=== PATIENT | female | born 1995 | race Hispanic/Latino ===

== ENCOUNTER 2022-10-11 09:42 | Emergency (ER) | payer MEDICAID ==
[~2022-10-11] VITALS: Ht 152.4 cm; Wt 61.2 kg
[2022-10-11 09:49] VITALS: BP 126/75
[2022-10-11 10:07] LABS: BASOPHILS % (AUTO) 0.4 % (0.0-5.0); EOSINOPHILS % (AUTO) 0.1 % (0.0-8.0); HEMATOCRIT 38.7 % (36-48); MEAN CORPUSCULAR HEMOGLOBIN 29.9 pg (27.0-33.0); MEAN CORPUSCULAR HGB CONC 34.1 g/dL (32.0-36.0); MEAN CORPUSCULAR VOLUME 87.8 fL (79-99); MONOCYTES % (AUTO) 8.4 % (3.0-13.0); NEUTROPHILS % (AUTO) 79.6 % (40.0-77.0); PLATELET COUNT (AUTO) 231 K/uL (130-400); RED BLOOD CELL COUNT(AUTO) 4.41 MIL/uL (4.00-5.50); WHITE BLOOD COUNT (AUTO) 15.2 K/uL (4.8-10.8)
[2022-10-11 10:10] LABS: APPEARANCE,URINE CLEAR (CLEAR); BILIRUBIN,URINE NEGATIVE (NEGATIVE); COLOR,URINE COLORLESS (YELLOW); GLUCOSE, URINE (UA) NEGATIVE (NEGATIVE); KETONES,URINE 20 mg/dL (NEGATIVE); LEUKOCYTE ESTERASE ,URINE NEGATIVE Leu/uL (NEGATIVE); NITRATE,URINE NEGATIVE (NEGATIVE); OCCULT BLOOD,URINE NEGATIVE (NEGATIVE); PROTEIN,URINE NEGATIVE (NEGATIVE); UROBILINOGEN,URINE 0.2 mg/dL (0.2-1.0)
[2022-10-11 10:14] LABS: MUCUS,URINE RARE LPF (None Seen); RBC,URINE 0-1 /HPF (0-1); SQUAMOUS EPITHELIAL CELL,UR FEW /HPF (0-2)
[2022-10-11 10:27] LABS: CREATININE 0.8 mg/dL (0.5-1.5); POTASSIUM 3.6 mmol/L (3.5-5.1)
[2022-10-11 10:54] LABS: ALBUMIN 3.9 g/dL (3.5-5.0); TOTAL PROTEIN, SERUM 7.7 g/dL (6.0-8.3)
[2022-10-11] MEDS: 0.9%NACL 1000ML 1,000 ML IV ONE (12:50)
[2022-10-11] MEDS: FAMOTIDINE 20MG VIAL IV ONE (12:50)
[2022-10-11] MEDS: ONDANSETRON 4MG INJ IVP ONE (12:50)
[2022-10-11] MEDS: LIDOCAINE HCL 2% VISCOUS 15 ML UDCUP PO ONE (12:50)
[2022-10-11] MEDS: MAG/ALUM/SIMETH 30 ML UDCUP PO ONE (12:50)
[2022-10-11] MEDS: ACETAMINOPHEN 500 MG TABLET PO ONE (12:51)
[2022-10-11] MEDS ORDERED: ACET-66 PO (15:38)
== END 2022-10-11 16:05 | disposition home or self-care (01) ==
LOC: EDH 09:42
DX: O26.891 Other specified pregnancy related conditions, first trimester (principal); R10.13 Epigastric pain; R11.0 Nausea; Z3A.01 Less than 8 weeks gestation of pregnancy; Z20.822 Contact with and (suspected) exposure to COVID-19
CPT/HCPCS: 99285; 96374; 76705; 76801; 87635; 96361; 96375; 80053; 84702; 85025; 87040 ×2; 87804 ×2; 83605; 81001; 36415; C9803; J7030; J2405; S0028; J3490